=== PATIENT | male | born 2000 | race Hispanic/Latino ===

== ENCOUNTER 2022-02-19 23:17 | Emergency (ER) | payer SELFPAY ==
[2022-02-20] MEDS ORDERED: Gentamicin Ophth Soln 0.3% 5 ml Bottle ONE (00:17)
== END 2022-02-20 01:06 | disposition home or self-care (01) ==
LOC: NAV ERS 23:17
DX: B30.9 Viral conjunctivitis, unspecified (principal); Z20.822 Contact with and (suspected) exposure to COVID-19
CPT/HCPCS: 87804; 99283; U0003; U0005

== ENCOUNTER 2024-01-10 19:22 | Emergency (ER) | payer BC, SELFPAY | END 2024-01-10 20:13 | disposition home or self-care (01) | LOC: NAV ERS 19:22 | DX: S16.1XXA Strain of muscle, fascia and tendon at neck level, initial encounter (principal); S29.012A Strain of muscle and tendon of back wall of thorax, initial encounter; V47.0XXA Car driver injured in collision with fixed or stationary object in nontraffic accident, initial encounter | CPT/HCPCS: 99283 ==

== ENCOUNTER 2024-03-18 14:58 | Emergency (ER) | payer OTHER ==
[~2024-03-18 14:58] MED LIST: Iopamidol 370 76% 100 ML VIAL ONE
[2024-03-18] MEDS ORDERED: Ondansetron PF 4 MG/2 ML Vial ONE (15:25)
[2024-03-18] MEDS ORDERED: Sodium Chloride 0.9% 1,000 ML ONE (15:25)
[2024-03-18] MEDS ORDERED: Acetaminophen 500 MG TAB ONE (15:25)
[2024-03-18 15:53] LABS: Bilirubin Small (Negative); Blood, Urine Trace (Negative); Clarity Clear (Clear); Glucose, Urine (Dipstick) Negative (Negative); Ketone, Urine Trace mg/dL (Negative); Leukocyte Negative (Negative); Nitrite Negative (Negative); Protein, Urine (Dipstick) > or equal to 300 mg/dL (Neg-Trace); Urobilinogen 0.2 mg/dL (Less than 2)
[2024-03-18 15:56] LABS: Specific Gravity, Urine 1.032 (1.002-1.036)
[2024-03-18 15:56] LABS: Hematocrit 44.3 % (42.0-52.0); Hemoglobin 15.1 g/dL (14.0-18.0); Mean Corpuscular HGB CONC 34.2 g/dL (32.0-36.0); Mean Corpuscular Hemoglobin 29.1 pg (27.0-31.0); Mean Corpuscular Volume 85.2 fl (78.0-98.0); Mean Platelet Volume 9.9 fL (7.4-10.4); Platelet Count 249 10x3/uL (130-400); RBC Distribution Width 10.5 % (11.5-14.5); White Blood Cell (WBC) Count 15.9 10x3/uL (4.8-10.8)
[2024-03-18 15:58] LABS: ALT (SGPT) 12 U/L (8-55); AST (SGOT) 8 U/L (5-34); Albumin 3.6 g/dL (3.5-5.0); Alkaline Phosphatase 84 U/L (40-110); Anion Gap 14 mmol/L (10-20); BUN (Urea Nitrogen) 7 mg/dL (8.9-20.6); Bilirubin, Total 0.6 mg/dL (0.2-1.2); Calc. Creatinine Clearance 0 mL/min (70-130); Calcium 9.5 mg/dL (7.8-10.44); Carbon Dioxide 19 mmol/L (22-29); Chloride 102 mmol/L (98-107); Estimated GFR 126; Globulin 4.1 g/dL (2.4-3.5); Glucose 136 mg/dL (70-105); Lipase 4 U/L (8-78); Potassium 3.9 mmol/L (3.5-5.1); Protein, Total 7.7 g/dL (6.0-8.3); Sodium 131 mmol/L (136-145)
[2024-03-18 15:59] LABS: Amphetamine Not Detected (NotDetected); Barbiturates Screen Not Detected (NotDetected); Benzodiazepine Screen Not Detected (NotDetected); Cocaine Metabolite Screen Not Detected (NotDetected); Methadone Not Detected (NotDetected); Methamphetamine Detected (NotDetected); Opiate Screen Not Detected (NotDetected); Oxycodone Screen Not Detected (NotDetected); Phencyclidine (PCP) Not Detected (NotDetected); THC/Cannabinoid Screen Not Detected (NotDetected); Tricyclic Screen Not Detected (NotDetected)
[2024-03-18 16:09] LABS: Bacteria/HPF 2+ HPF (None Seen); CAUTI Indications for Culture Pelvic or flank pain; Mucous/LPF Rare LPF (<2+); RBC/HPF 0-3 HPF (0-3); Squamous Epithelial 0-3 HPF (0-3)
[2024-03-18 16:12] LABS: Urine Culture Reflex No No
[2024-03-18 16:33] LABS: Band 28 % (5-11); Lymphocytes 4 % (21-51); Monocytes 5 % (0-10); Neutrophil 61 % (42-75); Reactive Lymphocytes 2 % (0-10)
[2024-03-18 16:35] LABS: RBC Morph Comment Within Normal Limits; Vacuoles SLIGHT
[2024-03-18 16:36] LABS: Platelet Adequacy Comment Appears Adequate; Toxic Granulation SLIGHT
[2024-03-18] MEDS ORDERED: Ibuprofen 200 MG TAB ONE (16:50)
[2024-03-18] MEDS ORDERED: metroNIDAZOLE 500 MG TAB ONE (16:51)
[2024-03-18] MEDS ORDERED: LevoFLOXacin D5W 500 mg (100 mL) BAG ONE (16:51)
[2024-03-18 18:18] LABS: MDiff Complete? YES
[2024-03-20 15:18] LABS: Campy jejuni + coli by PCR POSITIVE (Negative); STEC Shiga Toxin 1+2 Negative (Negative); Salmonella spp. by PCR Negative (Negative); Shigella spp + EIEC by PCR Negative (Negative)
== END 2024-03-18 18:11 | disposition home or self-care (01) ==
LOC: NAV ERS 14:58
DX: A09 Infectious gastroenteritis and colitis, unspecified (principal); E86.0 Dehydration
CPT/HCPCS: 36415; 71046; 74177; 80053; 80306; 81001; 82274; 83605; 83690; 84443; 85025; 87040; 87086; 87428; 87505; 96361; 96374; 96375; J1956; J2405; J7030; Q9967